=== PATIENT | male | born 1990 | race Caucasian/White ===

== ENCOUNTER 2023-04-13 19:49 | Emergency (ER) | payer OTHER, SELFPAY ==
[2023-04-13 19:51] VITALS: BP 160/92; PULSE 121; RESP 18; TEMP 38.1; O2SAT 98; BMI 33.8
[2023-04-13 19:53] VITALS: BP 160/92; PULSE 121; RESP 18; TEMP 38.1; O2SAT 98
--- NOTE | 2023-04-13 20:15 | EX.ED.DYSGE1 ---
HPI History of Present Illness Chief Complaint: Fever Narrative Narrative: 32-year-old male presenting with fever, chills, body aches, mild nausea which started this evening. Rest of his symptoms started the morning. Patient states he just traveled from [place] and noticed he started to feel ill this morning progressed over the day. He has not taken anything for fevers or chills. He developed nausea but has not been vomiting. He states he was able to eat and drink earlier today but does not have much of an appetite. He is drank about a cup of water all day. States his urine was initially clear but now it is darker. PFSH PFSH Home Medications acetaminophen 500 mg capsule 1,000 mg (2 x 500 mg) PO Q6H PRN fever or pain #30 caps 04/13/23 [Rx Last Taken Unknown] ibuprofen 600 mg tablet 600 mg PO Q8H PRN PRN fever or pain #30 TABLETS 04/13/23 [Rx Last Taken Unknown] ondansetron 4 mg disintegrating tablet 4 mg PO Q8H PRN PRN Nausea #20 tabs 04/13/23 [Rx Last Taken Unknown] Allergy/AdvReac Type Severity Reaction Status Date / Time No Known Allergies Allergy Verified 04/13/23 19:50 Social History Smoking Status: Never smoker ROS ROS ED Constitutional Constitutional ED: Reports chills and fever(s); Denies sweats Eyes Eyes: Denies blurry vision or change in vision ENT ENT ED: Denies ear pain or sore throat Cardiovascular Cardiovascular: Denies chest pain, palpitations or racing heartbeat Respiratory/Chest Respiratory/Chest: Denies cough, dyspnea or sputum Gastrointestinal Gastrointestinal: Reports nausea; Denies abdominal pain, constipation, diarrhea or vomiting Genitourinary Genitourinary ED: Denies dysuria, hematuria or urinary frequency Musculoskeletal Musculoskeletal: Denies arthralgias, myalgias or neck pain Integumentary Denies abscess, Abrasions or rash Neurologic Neurologic: Reports headache(s); Denies paresthesias or weakness Psychiatric Psychiatric: Denies anxiety, depression, suicidal ideation or suicidal thoughts Endocrine Endocrinology: Denies polydipsia or polyuria EXAM Physical Exam Const Vital Signs: 04/13/23 19:51 04/13/23 19:53 04/13/23 20:06 Temperature 100.5 F H 100.5 F H Temperature Source Oral Oral Pulse Rate 121 H 121 H Respiratory Rate 18 18 Respiratory Effort Normal Respiratory Pattern Normal Blood Pressure 160/92 H 160/92 H Blood Pressure Mean 114 114 Pulse Ox 98 98 Oxygen Delivery Method Room Air Room Air Positive well nourished General Appearance ED: NAD; Negative for pallor HEENT Reports moist mucous membranes trauma and tenderness Eyes PERRL and EOMs intact bilaterally Chest Wall inspection of chest normal Resp normal respiratory effort and clear to auscultation bilaterally Auscultation: Negative for rales, rhonchi or wheezes Cardio regular rhythm Rate: tachycardic GI normal to inspection, nondistended, normoactive bowel sounds Neuro oriented x3 and CN's II-XII intact bilaterally Sensorium / Orientation: alert Motor Exam: strength 5/5 throughout Psych mental status grossly normal Skin no rashes or lesions noted General Skin Exam: Negative for jaundice or pallor MDM MDM MDM Narrative Medical decision making narrative: Patient presenting with fever, chills, body aches. Recent travel from [place] to [place] and back. Likely viral in etiology. Will test for COVID, influenza, RSV. Patient given Toradol IM, Zofran, 1 g of Tylenol. On reevaluation at 9 PM the patient is feeling much better. I discussed with him treatment with Tylenol and ibuprofen overlapping doses I gave him some Zofran for home we had them filled for you meds to beds. Patient states he will go home and follow-up for his results online. Discharged stable condition. Impression: 1. Influenza A Lab Data Attestation: I reviewed the patient's lab results. Discharge Plan Triage Chief Complaint: Fever ED Provider: Jeremiah Storm Dx/Rx/DC Orders Instructions: ED Influenza (Adult), ED Viral Syndrome (Adult) Prescriptions: New ondansetron 4 mg tablet,disintegrating 4 mg PO Q8H PRN PRN (Reason: Nausea) Qty: 20 0RF ibuprofen 600 mg tablet 600 mg PO Q8H PRN PRN (Reason: fever or pain) Qty: 30 0RF acetaminophen 500 mg capsule 1,000 mg PO Q6H PRN (Reason: fever or pain) Qty: 30 0RF Primary Care Provider: [facility],Out of Referrals: [facility],Out of [Primary Care Provider] - Disposition Disposition: Home, Self Care
[2023-04-13] MEDS: Ketorolac 15 MG/ML Vial IM (20:23)
[2023-04-13] MEDS: Acetaminophen 500 MG Tablet 1000 MG PO (20:23)
[2023-04-13] MEDS: Ondansetron ODT 4 MG Tablet PO (20:23)
== END 2023-04-13 21:58 | disposition home or self-care (01) ==
PROVIDERS: Emergency Provider Student in an Organized Health Care Education/Training Program; Visit Provider Student in an Organized Health Care Education/Training Program
DX: J10.1 Influenza due to other identified influenza virus with other respiratory manifestations (principal)
CPT/HCPCS: 87631; 96372; 99282